=== PATIENT | male | born 1950 | race Caucasian/White ===

== ENCOUNTER → 2017-01-30 | Outpatient (CLI) | payer BC ==
[~2017-01-30] MED LIST: ACET-1311 PO; ALL300 PO; ASPCH81 PO; CALCTAB5 PO; FSM35 PO; MULT-506 PO; OMEG10007 PO; SIMV40TA2 PO; [UNRECOGNIZED DRUG - OTHER]
--- NOTE | 2017-01-30 09:48 | DIAGNOSTIC IMAGING REPORT ---
RIGHT SHOULDER MIN 2 VIEWS ROUTINE CLINICAL HISTORY: M54.12 Cervical radicular [id number] Right pain COMPARISON: None. DISCUSSION: Mild degenerative change glenohumeral and acromioclavicular joints. No abnormal soft tissue calcifications. No evidence for fracture or dislocation. IMPRESSION: Mild degenerative change. No acute process. Electronically signed by: Kwame Crawford M.D. 01/30/2017 9:46 AM Dictated Date/Time: 01/30/2017 9:45 AM
--- NOTE | 2017-01-30 09:50 | DIAGNOSTIC IMAGING REPORT ---
CERVICAL SPINE 6 VIEWS HISTORY: Pain. Radiculopathy. M54.12 Cervical radicular [id number] COMPARISON: None. FINDINGS: The cervical spine is visualized from C1 through the superior endplate of T1. There is no fracture. No subluxation. Disc spaces are preserved. Mild calcification of the carotid vasculature. Small rudimentary cervical ribs low cervical region. IMPRESSION: No fracture or subluxation within the cervical spine. Small bilateral cervical ribs. Calcification of carotid vasculature. Electronically signed by: Kwame Crawford M.D. 01/30/2017 9:48 AM Dictated Date/Time: 01/30/2017 9:47 AM
== END | disposition home or self-care (01) ==
LOC: C.RAD1850 08:48
PROVIDERS: ATTEND Physician Assistant
DX: M54.12 Radiculopathy, cervical region (principal)